=== PATIENT | female | born 2005 | race Caucasian/White ===

== ENCOUNTER → 2023-02-16 | Outpatient (CLI) | payer OTHER, SELFPAY | PROVIDERS: Referring Provider Family Medicine; Visit Provider Family Medicine | DX: Z23 Encounter for immunization (principal) | CPT/HCPCS: 90471; 90686 ==

== ENCOUNTER 2023-06-02 06:26 | Day surgery (SDC) | payer OTHER, SELFPAY ==
--- NOTE | 2023-06-02 | PATH_ITS ---
[facility] Accession Number: [id number] No. of containers..01 Tissue . 01 Material submitted: . body - RIGHT LABIAL SINUS TRACT . 01 Diagnosis: SKIN, RIGHT LABIA, EXCISION: Skin with dermal abscess and granulation tissue, with rare hair shafts associated with foreign body-type granulomas, consistent with clinical impression of sinus tract. No evidence of neoplasm. MRV 06/05/2023 1504 Local . 01 Electronically signed: . Semaj Sullivan MD, PhD, Pathologist NPI- [id number] . 01 Gross description: . The specimen is received in formalin labeled with the patient's name, , and R. labial sinus tract, and consists of an unoriented ellips of skin measuring 3.6 x 0.7 cm and 1.5 cm thick. The margin is inked blue, and sectioning reveals a holloway, firm cut surface possibly consistent with fibrous tissue. The specimen is submitted entirely as follows: A1: Tips. A2-A5: Remaining sequential slices. ([id number]) /EDGAR 06/04/2023 1119 Local . 01 Pathologist provided ICD-10: L02.214 . 01 CPT . 234468 Specimen Comment: A courtesy copy of this report has been sent to [phone] Performed at: 01 [facility] [address] [place] [address], [place], [place] [id number] MD Martinez Luciano MD Phone: [phone]
[2023-06-02] MEDS: LACTATED RINGERS 1,000 ML 42 ML IV (06:42)
[2023-06-02 06:43] VITALS: BMI 25.7
[2023-06-02 06:56] VITALS: BP 129/79; PULSE 93; RESP 17; TEMP 36.9; O2SAT 98
[2023-06-02] MEDS: SCOPOLAMINE 1 PATCH TOP (07:12)
[2023-06-02] MEDS: ACETAMINOPHEN 325 MG TABLET 975 MG PO (07:12)
--- NOTE | 2023-06-02 07:25 | SUR.OPER ---
Addendum entered by Sumaya Peterson R.N. 06/02/23 08:08: Correction: patient in frog leg position on padded OR bed. Head on pillow, arms secured on padded arm boards at <90 degrees abduction. Original Note: Lithotomy on padded OR bed, head on pillow, arms secured on padded arm boards at <90 degrees abduction. Legs secured in padded yellow fins stirrups.
--- NOTE | 2023-06-02 07:46 | PM.PREOP ---
Pre-operative Note COVID-19 COVID-19 status: Not tested Interval Note History & Physical reviewed/Exam performed by Physician: Yes Changes to H&P: No ASA Class (for procedural sedation): I
[2023-06-02] MEDS: BUPIVACAINE 0.5% W/ EPI (PF) 30 ML VIAL INJ (08:16)
[2023-06-02 08:46] VITALS: BP 102/70; PULSE 81; RESP 16; TEMP 37.1; O2SAT 99
--- NOTE | 2023-06-02 08:48 | PM.OP.1 ---
Operative Date/Time/Diagnoses Date of procedure: 06/02/23 Time of procedure: 08:48 Pre-op diagnosis: Right labial draining sinus Post-op diagnosis: same Procedure & Clinicians Procedure: Excision of right labial draining sinus tract Same procedure as scheduled: Yes Surgeon: Charlie Lima Anesthesia Type: MAC +/- Operative Notes Procedure in detail: The patient was brought to the operating room and monitored anesthesia was induced. She was positioned in the frog-leg position and the mons and labia were prepped with Betadine and draped in the usual fashion. Once she was asleep a time-out was performed. The area was inspected. The superior medial aspect of the tract appeared to be the most inflamed and was roughly 7 mm in diameter and demonstrated a small amount of clear drainage with palpation. The other end of the sinus tract appeared to be close to the crease of the it is thigh and groin and demonstrated no drainage. A lacrimal duct probe was inserted to confirm the trajectory of the tract. We injected local around the area of the excised the tract. The specimen was about 4 cm x 1 cm. The wound appeared clean. Additional local was injected into the periphery and base of the wound. We then closed the incision in layers using multiple interrupted 3-0 dermal sutures and a running 4-0 Monocryl subcuticular stitch. Dermabond was applied. EBL: 5 mL Specimen: Right labial-mons sinus tract Post-operative Condition: stable Disposition: PACU
[2023-06-02 08:51] VITALS: BP 110/70; PULSE 86; RESP 16; O2SAT 99
[2023-06-02 08:57] VITALS: BP 111/80; PULSE 81; RESP 18; TEMP 36.8; O2SAT 99
[2023-06-02 09:03] VITALS: BP 116/76; PULSE 87; RESP 16; TEMP 36.6; O2SAT 98
== END 2023-06-02 09:24 | disposition home or self-care (01) ==
PROVIDERS: PCP Physician Assistant; Referring Provider Surgery; Visit Provider Surgery
PROC: (CPT 11424; principal; 2023-06-02 07:45)
DX: N76.4 Abscess of vulva (principal)
CPT/HCPCS: 11424; 12032; 81025; J1100; J1885; J2250; J2405; J2704; J3010

== ENCOUNTER → 2024-01-06 18:51 | Outpatient (CLI) | payer OTHER, SELFPAY | PROVIDERS: PCP Physician Assistant; Referring Provider Internal Medicine; Visit Provider Internal Medicine | DX: Z23 Encounter for immunization (principal) | CPT/HCPCS: 90471; 90656 ==

== ENCOUNTER 2024-05-07 19:39 | Emergency (ER) | payer OTHER, SELFPAY ==
[2024-05-07] VITALS (7 sets, daily range): BP systolic 116–146; BP diastolic 60–84; PULSE 79–89; RESP 16–27; TEMP 36.6–37; O2SAT 97–99; BMI 27.4
--- NOTE | 2024-05-07 19:48 | EKG_ITS ---
[place] [id number] [place] [id number] Test Date: 2024-05-07 Pat Name: Ziyad Sotelo Department: [facility] Room: Gender: Female Operations Systems Specialist: : [id number] Requested By: Order Number: [id number] Reading MD: Brett Kumar Measurements Intervals [place] Rate: 88 P: 39 HI: 142 QRS: 67 QRSD: 98 T: 47 QT: 358 QTc: 433 Interpretive Statements Normal sinus rhythm with sinus arrhythmia Incomplete right bundle branch block Electronically Signed On 05-11-2024 23:43:09 PST by Brett Kumar
--- NOTE | 2024-05-07 20:50 | ED.CHESTPAIN ---
HPI - Chest Pain General Chief Complaint: Chest Pain Stated Complaint: palpitations, chest tightness Time Seen by Provider: 05/07/24 19:50 Source: patient Mode of arrival: Ambulatory Limitations: no limitations History of Present Illness HPI narrative: 19-year-old female presents for evaluation intermittent chest palpitations and tightness. Worsening over the last week. States that she was concerned that her IUD may be affecting this. Denies personal or family history of heart disease. Nothing seems to makes these better or worse. States that she is active and excercises - exercise does not worsen chest pain. Related Data Home Medications Medication Instructions Recorded Confirmed metformin 500 mg tablet 500 mg PO DAILY 05/06/23 06/17/23 norgestimate 0.25 mg-ethinyl 1 tab PO DAILY 05/06/23 06/17/23 estradiol 35 mcg tablet sertraline 25 mg tablet 25 mg PO DAILY 05/06/23 06/17/23 Previous Rx's Medication Instructions Recorded ondansetron 4 mg disintegrating 4 mg PO Q8H PRN nausea and 06/04/23 tablet vomiting #20 tabs Allergies Allergy/AdvReac Type Severity Reaction Status Date / Time No Known Drug Allergies Allergy Unverified 06/17/23 13:45 Patient History Family History Grandmother Hypertension Father Diabetes mellitus Grandfather Cancer Social History household members: significant other Smoking Status: Never smoker alcohol intake: never Smoking Status: Never smoker Exam Initial Vital Signs Initial Vital Signs: Vital Signs Temperature 98 F 05/07/24 19:45 Pulse Rate 80 05/07/24 19:45 Respiratory Rate 18 05/07/24 19:45 Blood Pressure 146/74 H 05/07/24 19:45 Pulse Oximetry 97 05/07/24 19:45 Oxygen Delivery Method Room Air 05/07/24 19:45 Const: Awake, alert, no acute distress, nontoxic appearing Cardiac: regular rate, regular rhythm RESP: unlabored, clear bilaterally, no wheezing Skin: Warm, Dry, intact, no rashes Neuro: AO x3, CN II-XII grossly intact, moves all extremities Course Orders Ordered: ED Orders 05/07/24 19:48 EKG-12 Lead Stat 05/07/24 20:50 Chest [XR chest 1V] Stat 05/07/24 20:55 CBC Auto Diff [Complete Blood Count AUTO DIFF] Stat CMP [Comprehensive Metabolic Panel] Stat TSH [Thyroid Stimulating Hormone] Stat Troponin & CK Cardiac Panel Stat Vital Signs Vital signs: Vital Signs - 8 hr 05/07/24 19:45 05/07/24 20:26 05/07/24 20:30 Temperature 98 F Pulse Rate 80 79 85 Respiratory Rate 18 16 19 Blood Pressure 146/74 H Pulse Oximetry 97 98 98 Oxygen Delivery Method Room Air 05/07/24 20:30 05/07/24 21:00 05/07/24 21:00 Temperature Pulse Rate 89 Respiratory Rate 27 H Blood Pressure 120/68 122/84 Pulse Oximetry 97 Oxygen Delivery Method 05/07/24 21:30 05/07/24 21:30 05/07/24 22:00 Temperature Pulse Rate 81 82 Respiratory Rate 21 21 Blood Pressure 116/79 Pulse Oximetry 99 99 Oxygen Delivery Method 05/07/24 22:00 05/07/24 22:14 Temperature 98.6 F Pulse Rate Respiratory Rate Blood Pressure 117/60 Pulse Oximetry Oxygen Delivery Method MDM - Chest Pain Lab Data 05/07/24 20:55 05/07/24 20:55 Labs: Lab Results 05/07/24 Range/Units 20:55 WBC 7.6 (4.5-11.0) X10^3/uL RBC 4.48 (4.0-5.2) X10^6/uL Hgb 12.9 (12.0-16.0) g/dL Hct 38.8 (36-46) % MCV 86.7 (80-100) fL MCH 28.8 (26-34) PG MCHC 33.2 (30-36) % RDW 14.1 (11.6-14.8) % Plt Count 217 (150-400) X10^3/uL Neut % (Auto) 60.6 (50-75) % Lymph % (Auto) 28.6 (25-40) % Early % (Auto) 9.1 (3-14) % Eos % (Auto) 0.9 L (2-4) % Baso % (Auto) 0.8 (0-2) % Neut # (Auto) 4600 (7414-4375) /uL Lymph # (Auto) 2200 (8683-4296) /uL Early # (Auto) 700 (0-900) /uL Eos # (Auto) 100 (0-450) /uL Baso # (Auto) 100 (0-100) /uL Sodium 141 (137-145) mmol/L Potassium 4.0 (3.4-5.1) mmol/L Chloride 105 (98-107) mmol/L Carbon Dioxide 27 (22-32) mmol/L BUN 18 H (7-17) mg/dL Creatinine 0.94 (0.52-1.04) mg/dL Estimated GFR > 60 (>60) mL/min BUN/Creatinine Ratio 19.1 (6-22) Glucose 100 (70-100) mg/dL Calcium 9.5 (8.4-10.2) mg/dL Total Bilirubin 0.7 (0.2-1.3) mg/dL AST 31 (14-36) IU/L ALT 17 (<35) IU/L Alkaline Phosphatase 76 (38-126) U/L Total Creatine Kinase 154 H (30-135) U/L Troponin I < 0.012 (0.01-0.034) ng/mL Total Protein 8.2 (6.3-8.2) g/dL Albumin 4.8 (3.5-5.0) g/dL Globulin 3.4 (1.7-4.1) g/dL Albumin/Globulin Ratio 1.4 (1.0-2.8) TSH 3.20 (0.47-4.68) uIU/mL Point of Care Testing Test Results Negative Urine Dip Bedside Urine Glucose Negative Bedside Urine Bilirubin - Negative Bedside Urine Ketone - Negative Urine Specific [place] 1.010 Bedside Urine Occult Blood - Negative Bedside Urine pH 7.0 Bedside Urine Protein - Negative Bedside Urine Urobilinogen - Negative Bedside Urine Nitrite - Negative Bedside Urine Leukocytes - Negative Esterase Imaging Data Chest x-ray: Radiologist's Impression: PROCEDURE: XR CHEST 1V INDICATIONS: palpitations TECHNIQUE: One view of the chest was acquired. COMPARISON: None. FINDINGS: Surgical changes and devices: None. Lungs and pleura: Lungs are clear. No pleural effusions or pneumothorax. Mediastinum: Mediastinal contours appear normal. Heart size is normal. Bones and chest wall: No suspicious bony lesions. Overlying soft tissues appear unremarkable. IMPRESSION: No acute cardiopulmonary abnormality is seen. Dictated by: Heron Kay M.D. on 05/07/2024 at 20:13 Approved by: Heron Kay M.D. on 05/07/2024 at 20:14 ECG Data Interpretation: Normal sinus rhythm at 88 beats per minute. Normal MN, no ST T wave changes MDM Narrative Medical decision making narrative: Intermittent palpitations. Exam unremarkable. EKG normal sinus rhythm. Labs unremarkable. Patient endorsing palpitations even while normal electric activity is seen on cardiac catheterization technician. Patient counseled of normal lab and imaging findings. Recommended close PCP follow up. If she continues to experience symptoms she may need Holter monitoring for future evaluation. Unlikely to be secondary to IUD. Patient denies OCP use. Discharge Plan Departure Patient Disposition: Home Clinical Impression: Palpitations Instructions: DI for Arrhythmias Activity Restrictions/Additional Instructions: Your EKG, chest x-ray, and laboratory work today was normal. I do not know the cause of your palpitations, but I do not see any concerning rhythm abnormalities. Continue to take all medications as previously prescribed. Follow up with your primary care doctor if you continue to experience these palpitations as you may need Holter monitoring or other evaluations. This will be at the discretion of your primary care doctor. Prescriptions: No Action ondansetron 4 mg tablet,disintegrating 4 mg PO Q8H PRN (Reason: nausea and vomiting) Qty: 20 0RF sertraline 25 mg tablet 25 mg PO DAILY metformin 500 mg tablet 500 mg PO DAILY norgestimate-ethinyl estradiol 0.25-35 mg-mcg tablet 1 tab PO DAILY Referrals: Aicha Lujan PA-C [Primary Care Provider] - Stand Alone Forms: Patient Portal/API/Survey
[2024-05-07 21:05] LABS: Add Manual Diff / Slide Review NO; Basophils Absolute Auto 100 /uL (0-100); Basophils Percent Auto 0.8 % (0-2); Eosinophils Absolute Auto 100 /uL (0-450); Eosinophils Percent Auto 0.9 % (2-4); Hematocrit 38.8 % (36-46); Hemoglobin 12.9 g/dL (12.0-16.0); Lymphocytes Absolute Auto 2200 /uL (1100-4500); Lymphocytes Percent Auto 28.6 % (25-40); Mean Corpuscular HGB Conc 33.2 % (30-36); Mean Corpuscular Hemoglobin 28.8 PG (26-34); Mean Corpuscular Volume 86.7 fL (80-100); Monocytes Absolute Auto 700 /uL (0-900); Monocytes Percent Auto 9.1 % (3-14); Neutrophils Absolute Auto 4600 /uL (1500-7000); Neutrophils Percent Auto 60.6 % (50-75); Platelet Count 217 X10^3/uL (150-400); Red Blood Cell Count 4.48 X10^6/uL (4.0-5.2); Red Cell Distribution Width 14.1 % (11.6-14.8); White Blood Cell Count 7.6 X10^3/uL (4.5-11.0)
[2024-05-07 21:28] LABS: Alanine Aminotransferase 17 IU/L (<35); Albumin 4.8 g/dL (3.5-5.0); Albumin Globulin Ratio 1.4 (1.0-2.8); Alkaline Phosphatase 76 U/L (38-126); Aspartate Aminotransferase 31 IU/L (14-36); BUN Creatinine Ratio 19.1 (6-22); Bilirubin Total 0.7 mg/dL (0.2-1.3); Blood Urea Nitrogen 18 mg/dL (7-17); Calcium 9.5 mg/dL (8.4-10.2); Carbon Dioxide 27 mmol/L (22-32); Chloride 105 mmol/L (98-107); Creatine Kinase 154 U/L (30-135); Estimated Glomerular Filt Rate > 60 mL/min (>60); Globulin 3.4 g/dL (1.7-4.1); Glucose 100 mg/dL (70-100); HEMOLYSIS < 15 (0-50); Sodium 141 mmol/L (137-145); Total Protein 8.2 g/dL (6.3-8.2)
[2024-05-07 21:39] LABS: Troponin I < 0.012 ng/mL (0.01-0.034)
== END 2024-05-07 22:16 | disposition home or self-care (01) ==
PROVIDERS: Emergency Provider Emergency Medicine; PCP Physician Assistant
DX: R00.2 Palpitations (principal); R07.9 Chest pain, unspecified; Z97.5 Presence of (intrauterine) contraceptive device; I45.10 Unspecified right bundle-branch block; I49.8 Other specified cardiac arrhythmias
CPT/HCPCS: 36415; 71045; 80053; 81003; 81025; 82550; 84443; 84484; 85025; 93005; 99283; 99284